=== PATIENT | male | born 1940 | race Caucasian/White ===

== ENCOUNTER 2019-01-23 15:00 | Outpatient (RCR) ==
--- NOTE | 2019-01-19 09:03 | RS.OPPTEV2 ---
Date of Note: 01/18/19 Visit #: 1 Number of visits approved by Insurance: n/a Date of Evaluation: 01/18/19 Payer Source: MEDICARE Surgery Performed?: No Treatment Diagnosis: B shld pain, joint stiffness, muscle weakness History of Condition/Mechanism of Injury:: Longstanding history of pain in B shlds. Received steroid injections in B shlds last week. Prior Level of Function.....Patient was independent with: ADL's, Self Care, Ambulation/Mobility, Community Integration/Access Level of Function: pt is independent with ADL's, and amb. Lives alone, has a ship surveyor that comes 1 x a week. Functional Limitations: Reaching, Pushing, Pulling, Lifting, Carrying Current Subjective/complaints:: pt states that his shoulders hurt all the time, states that Dr. [place] told him 5 yrs ago that he needs a total shld on R, but he never had surgery. He reports he wants to be able to move his shlds more. Treatment Side (optional): Bilateral *Precautions: pt is on O2 Medical History Medical History: COPD, Arthritis Smoking Status: Never smoker Hx Home Medications: prednisone, amlodipine besylate, bumex, calcium, carbamazepine, cholecalciferol, lisinopril, multi vitamin, pantoprazole, nebulizer, oxygen. Patient's Goals: decrease pain in B shlds and improve function B UE. Pain Assessment - Pain Description Pain Location: B shlds R worse than L Pain Description: Sharp, Aching Current Pain Intensity: 6 Worst Pain Intensity: 10 Other Comments regarding Pain:: pain increases with ROM Functional Outcome Measure UE Functional Index: 38 - G Codes & Severity Modifier G Codes & Modifier: n/a Source of G Code score: n/a Observation - Observation Inspection: pt on O2 2liters continuous. Posture: Forward Head, Rounded Shoulders, Increased Thoracic Kyphosis, Decreased Lumbar Lordosis Handedness: Right Gait - Gait Pattern General Gait Pattern Observation: No Deviations/Normal, Decrease Stride Lngth (R ), Decrease Stride Lngth (L) Gait Comments: pt amb with increased lat sway with occasional lat loss of balance able to correct himself. General Range of Motion: BLE WFL's. BUE elbow wrist and hand WFL's. cervical ROM WFL' s without pain Muscle Strength: BLE 4+/5. BUE elbow, wrist and hand 4-/5 - Left Shoulder ROM Left Shoulder Flexion: 98 Left Shoulder Abduction: 58 Left Shoulder Internal Rotation: 38 Left Shoulder External Rotation: 15 Left Shoulder ROM Limitations: Soft Tissue Tightness, Muscle Weakness, Pain - Right Shoulder ROM Right Shoulder Flexion: 72 Right Shoulder Abduction: 47 Right Shoulder Internal Rotation: 22 Right Shoulder External Rotation: 8 Right Shoulder ROM Limitations: Soft Tissue Tightness, Muscle Weakness, Pain Comments: pt with audible crepitis noted in B shlds R shld worse than left. - Left Shoulder Strength Left Shoulder Flexion: 3- Fair- Left Shoulder Abduction: 3- Fair- Left Shoulder External Rotation: 2+ Poor+ Left Shoulder Internal Rotation: 2+ Poor+ - Right Shoulder Strength Right Shoulder Flexion: 3- Fair- Right Shoulder Abduction: 3- Fair- Right Shoulder External Rotation: 2+ Poor+ Right Shoulder Internal Rotation: 3- Fair- - Special Tests Shoulder Empty Can (Supraspinatus) Test: Positive Left, Positive Right Shoulder Speed's Sign Test: Positive Right Shoulder Drop Arm Test: Positive Left, Positive Right Palpation Palpation Findings: Tenderness, Muscle Guarding Comments:: tenderness noted to R bicipetal groove, as well as area of supraspinatus. Sensation - Sensation Right Upper Extremity: Intact/Normal Left Upper Extremity: Intact/Normal Right Lower Extremity: Intact/Normal Left Lower Extremity: Intact/Normal Balance - Sitting Balance Static Sitting Balance: Normal Dynamic Sitting Balance: Good - Standing Balance Static Standing Balance: Good Dynamic Standing Balance: Fair - Heat/Cryotherapy Treatment: Hot Pack Comments:: B shlds x 10 mins Interventions - Exercise/Activities/Manual Therapy Exercises/Activities: pt received AAROM/PROM B shld in all planes of motion. Instructed pt in isometrics for shld flex, abd, add, ext. Attempted pendulum, pt with much difficulty letting UE relax. Manual Therapy: n/a HOME EXERCISE PROGRAM: pt given written HEP including: isometrics, and pendulum. - Charges Timed Code Treatment Minutes: 52 Total Treatment Time: 61 Procedures billed for this date of service:: eval med, ex, HP EVALUATION COMPLEXITY LEVEL EVALUATION COMPLEXITY LEVEL: HISTORY: Medium, EXAM OF BODY SYSTEMS: Medium, CLINICAL PRESENTATION: Medium, CLINICAL DECISION MAKING: Medium Assessment Assessment: pt presents with pain in B shlds as well as decreased ROM, strength. Feel pt would benefit from skilled PT for therex for ROM, strengthening, as well as modalities for pain control. Patient Education: Home Exercise Program, Education of Plan of Care Rehab Potential: Good Short Term Goals Goal #1: pt independent with initial HEP Goal to be met by: 02/02/19 Goal #2: pt demonstrate improved B shld ROM. Goal to be met by: 02/02/19 Goal #3: pt demonstrate improved strength BUE elbow/wrist/hand 4/5 Goal to be met by: 02/02/19 Snf Goals Goal #1: pt demonstrate improved R shld flex 80 abd 60 Goal to be met by: 02/23/19 Goal #2: pt demonstrate improved L shld flex 110 abd 75 Goal to be met by: 02/23/19 Goal #3: pt report pain < 5/10 Goal to be met by: 02/23/19 Goal #4: pt report increased ability to perform normal daily activities w less pain Goal to be met by: 02/23/19 Plan - Treatment to be Provided Procedures: Therapeutic Exercises, Therapeutic Activity, Manual Therapy, Massage , Patient Education Modalities: Electrical Stimulation, Ultrasound/Phonophoresis, Cryotherapy, Hot Packs - Treatment Plan Frequency: 2-3x a week Duration: 6 weeks Dates of Service Tech Goals: 02/23/19 Expiration date of current Insurance Approval:: n/a - Treatment Code (1) Bilateral shoulder pain Code(s): M25.511 - PAIN IN RIGHT SHOULDER Qualifiers: Chronicity: chronic Qualified Code(s): M25.511 - Pain in right shoulder; M25.512 - Pain in left shoulder; G89.29 - Other chronic pain (2) Joint stiffness of both shoulders Code(s): M25.611 - STIFFNESS OF RIGHT SHOULDER, NOT ELSEWHERE CLASSIFIED; M25.612 - STIFFNESS OF LEFT SHOULDER, NOT ELSEWHERE CLASSIFIED (3) Muscle weakness Code(s): M62.81 - MUSCLE WEAKNESS (GENERALIZED) (4) Rotator cuff disorder Code(s): M67.919 - UNSP DISORDER OF SYNOVIUM AND TENDON, UNSPECIFIED SHOULDER Qualifiers: Laterality: bilateral Qualified Code(s): M67.911 - Unspecified disorder of synovium and tendon, right shoulder; M67.912 - Unspecified disorder of synovium and tendon, left shoulder
--- NOTE | 2019-01-23 16:26 | RS.OPPTDN ---
Subjective Date of Note: 01/23/19 Visit #: 2 Number of visits approved by Insurance: na Date of Evaluation: 01/18/19 Payer Source: MEDICARE Treatment Diagnosis: B shld pain, joint stiffness, muscle weakness Current Subjective/complaints:: Patient reports pain in bilateral shoulders, but right is much worse. States he has difficulty using the right UE for reaching activities. *Precautions: pt is on O2 Pain Assessment - Pain Description Pain Location: Bilateral shoulders, R>L Current Pain Intensity: mod+ - Treatment Modality: Ultrasound Parameters/Method Applied: 16mins total. US at 1.5w/cm2, x8mins to each shoulder joint prior to EX. Patient Position: Sitting - Heat/Cryotherapy Treatment: Hot Pack ([id number] to bilateral shoulders prior to US and EX. Patient in supine. ) Interventions - Exercise/Activities/Manual Therapy Exercises/Activities: PROM and AAROM to bilateral shoulders into flexion, scaption, and limited abduction. Isometrics for shld adduction, extension, and bilateral IR all with pillow and with ball. Clasped hands for short shoulder flexion. Began overhead pulleys, 15reps. Total minutes of Exercise: 15mins Manual Therapy: n/a HOME EXERCISE PROGRAM: pt given written HEP including: isometrics, and pendulum. - Charges Timed Code Treatment Minutes: 31mins Total Treatment Time: 51mins Procedures billed for this date of service:: HP, US, EX Assessment: Patient attentive to HEP instruction. Patient Education: Body/Joint mechanics, Home Exercise Program, Activity Modification Patient demonstrates compliance with HEP?: Yes Short Term Goals Goal #1: pt independent with initial HEP Goal to be met by: 02/02/19 Progress towards Goal:: Progressing Goal #2: pt demonstrate improved B shld ROM. Goal to be met by: 02/02/19 Goal #3: pt demonstrate improved strength BUE elbow/wrist/hand 4/5 Goal to be met by: 02/02/19 Long-Term Goals Goal #1: pt demonstrate improved R shld flex 80 abd 60 Goal to be met by: 02/23/19 Goal #2: pt demonstrate improved L shld flex 110 abd 75 Goal to be met by: 02/23/19 Goal #3: pt report pain < 5/10 Goal to be met by: 05/31/19 Goal #4: pt report increased ability to perform normal daily activities w less pain Goal to be met by: 02/23/19 Plan Dates of Industrial Training Specialist Goals: 02/23/19 Expiration date of current Insurance Approval:: 02/23/19 PLAN: Continue modalities and progress exercise to reduce pain and increase functional activity level.
== END 2019-01-23 23:59 ==
PROVIDERS: ATTEND Family Medicine
DX: M25.511 Pain in right shoulder (principal); M25.512 Pain in left shoulder; G89.29 Other chronic pain; M67.911 Unspecified disorder of synovium and tendon, right shoulder; M67.912 Unspecified disorder of synovium and tendon, left shoulder; M25.611 Stiffness of right shoulder, not elsewhere classified; M25.612 Stiffness of left shoulder, not elsewhere classified; M62.81 Muscle weakness (generalized)

== ENCOUNTER 2019-02-14 14:00 | Outpatient (RCR) ==
--- NOTE | 2019-01-25 16:25 | RS.OPPTDN ---
Subjective Date of Note: 01/25/19 Visit #: 3 Number of visits approved by Insurance: na Date of Evaluation: 01/18/19 Payer Source: MEDICARE Treatment Diagnosis: B shld pain, joint stiffness, muscle weakness Current Subjective/complaints:: States last treatment helped decrease pain in shoulders. *Precautions: pt is on O2 Pain Assessment - Pain Description Pain Location: bilateral shoulders Current Pain Intensity: mod to high - Treatment Modality: Ultrasound Parameters/Method Applied: 20mins total. At 1.5w/cm2, 10 mins to each shoulder joint prior to EX. Patient Position: Sitting - Heat/Cryotherapy Treatment: Hot Pack ([id number] to bilateral shoulders. Patient in sitting. ) Interventions - Exercise/Activities/Manual Therapy Exercises/Activities: PROM and AAROM to bilateral shoulders into flexion, scaption, and limited abduction. Isometrics for shld adduction, extension, and bilateral IR all with pillow and with ball. Began wand for shoulder flexion only, pt has difficulty with right shoulder flexion. Total minutes of Exercise: 12mins Manual Therapy: n/a HOME EXERCISE PROGRAM: pt given written HEP including: isometrics, and pendulum. - Charges Timed Code Treatment Minutes: 32mins Total Treatment Time: 52mins Procedures billed for this date of service:: HP, US, EX Assessment: Patient reporting good response to treatment. Will slowly progress exercise due to limited motion and pain level. Patient Education: Home Exercise Program Patient demonstrates compliance with HEP?: Yes Short Term Goals Goal #1: pt independent with initial HEP Goal to be met by: 02/02/19 Progress towards Goal:: Progressing Goal #2: pt demonstrate improved B shld ROM. Goal to be met by: 02/02/19 Goal #3: pt demonstrate improved strength BUE elbow/wrist/hand 4/5 Goal to be met by: 02/02/19 Group Home Goals Goal #1: pt demonstrate improved R shld flex 80 abd 60 Goal to be met by: 02/23/19 Goal #2: pt demonstrate improved L shld flex 110 abd 75 Goal to be met by: 02/23/19 Goal #3: pt report pain < 5/10 Goal to be met by: 02/23/19 Progress towards goal: Progressing Goal #4: pt report increased ability to perform normal daily activities w less pain Goal to be met by: 02/23/19 Plan Dates of Forge Heater Goals: 02/23/19 Expiration date of current Insurance Approval:: 02/23/19 PLAN: Continue modalities and progress exercise to reduce pain and increase functional use of UE's.
--- NOTE | 2019-01-31 14:28 | RS.OPPTDN ---
Subjective Date of Note: 01/30/19 Visit #: 4 Number of visits approved by Insurance: na Date of Evaluation: 01/18/19 Payer Source: MEDICARE Treatment Diagnosis: B shld pain, joint stiffness, muscle weakness Current Subjective/complaints:: Reports treatment seems to be helping reduce pain in bilateral shoulders. *Precautions: pt is on O2 Pain Assessment - Pain Description Pain Location: bilateral shoulder joints, R > L Current Pain Intensity: moderate - Treatment Modality: Ultrasound Parameters/Method Applied: [id number] total. US at 1.5w/cm2, 10mins to each shoulder joint prior to EX. Patient Position: Sitting - Heat/Cryotherapy Treatment: Hot Pack ([id number] to bilateral shoulder joints prior to US and EX. Patient in sitting. ) Interventions - Exercise/Activities/Manual Therapy Exercises/Activities: PROM and AAROM to bilateral shoulders into flexion, scaption, and limited abduction. Isometrics for shld adduction, extension, and bilateral IR all with pillow and with ball. Wand for shoulder flexion only, pt continues to have difficulty with right shoulder flexion. Total minutes of Exercise: 14mins Manual Therapy: n/a HOME EXERCISE PROGRAM: pt given written HEP including: isometrics, and pendulum. - Charges Timed Code Treatment Minutes: 34mins Total Treatment Time: 54mins Procedures billed for this date of service:: HP, US, EX Assessment: Patient continues to have limited PROM and AROM due to pain, but reports treatment is helping reduce pain. Patient Education: Home Exercise Program Patient demonstrates compliance with HEP?: Yes Short Term Goals Goal #1: pt independent with initial HEP Goal to be met by: 02/02/19 Progress towards Goal:: Progressing Goal #2: pt demonstrate improved B shld ROM. Goal to be met by: 02/02/19 Progress towards Goal:: Progressing Goal #3: pt demonstrate improved strength BUE elbow/wrist/hand 4/5 Goal to be met by: 02/02/19 Bobbin Trucker Goals Goal #1: pt demonstrate improved R shld flex 80 abd 60 Goal to be met by: 02/23/19 Goal #2: pt demonstrate improved L shld flex 110 abd 75 Goal to be met by: 02/23/19 Goal #3: pt report pain < 5/10 Goal to be met by: 02/23/19 Progress towards goal: Progressing Goal #4: pt report increased ability to perform normal daily activities w less pain Goal to be met by: 02/23/19 Plan Dates of Half-Way Goals: 02/23/19 Expiration date of current Insurance Approval:: 02/23/19 PLAN: Continue modalities and gentle exercise to reduce pain and increase functional use of the bilateral UE's.
--- NOTE | 2019-02-02 16:29 | RS.OPPTDN ---
Subjective Date of Note: 02/02/19 Visit #: 5 Number of visits approved by Insurance: na Date of Evaluation: 01/18/19 Payer Source: MEDICARE Treatment Diagnosis: B shld pain, joint stiffness, muscle weakness Current Subjective/complaints:: Reports treatment is helping reduce bilateral shoulder pain, but he continues to have joint stiffness that limits use. Patient asks to stop US as he needs to use restroom (exercise abbreviated). *Precautions: pt is on O2 Pain Assessment - Pain Description Pain Location: Bilateral shoulders, R > L Pain Description: Aching Current Pain Intensity: moderate - Treatment Modality: Ultrasound Parameters/Method Applied: [id number] total. US at 1.5w/cm2 , 10mins to each shoulder joint. Patient Position: Sitting - Heat/Cryotherapy Treatment: Hot Pack ([id number] to bilateral shoulder joints prior to US. Patient sitting. ) Interventions - Exercise/Activities/Manual Therapy Exercises/Activities: No exercise as treatment time was cut short today. Manual Therapy: n/a HOME EXERCISE PROGRAM: pt given written HEP including: isometrics, and pendulum. - Charges Timed Code Treatment Minutes: 20mins Total Treatment Time: 40mins Procedures billed for this date of service:: HP, US Assessment: Treatment time abbreviated due to patient needing to use restroom. He continues to report reduction in pain. Patient demonstrates compliance with HEP?: Yes Short Term Goals Goal #1: pt independent with initial HEP Goal to be met by: 02/02/19 Progress towards Goal:: Progressing Goal #2: pt demonstrate improved B shld ROM. Goal to be met by: 02/02/19 Progress towards Goal:: Progressing Goal #3: pt demonstrate improved strength BUE elbow/wrist/hand 4/5 Goal to be met by: 02/02/19 Material Handling Technician Goals Goal #1: pt demonstrate improved R shld flex 80 abd 60 Goal to be met by: 02/23/19 Goal #2: pt demonstrate improved L shld flex 110 abd 75 Goal to be met by: 02/23/19 Goal #3: pt report pain < 5/10 Goal to be met by: 02/23/19 Progress towards goal: Progressing Goal #4: pt report increased ability to perform normal daily activities w less pain Goal to be met by: 02/23/19 Plan Dates of Material Handling Technician Goals: 02/23/19 Expiration date of current Insurance Approval:: 02/23/19 PLAN: Continue modalities and progress exercise as tolerated.
--- NOTE | 2019-02-07 16:33 | RS.OPPTDN ---
Subjective Date of Note: 02/07/19 Visit #: 6 Number of visits approved by Insurance: na Date of Evaluation: 01/18/19 Payer Source: MEDICARE Treatment Diagnosis: B shld pain, joint stiffness, muscle weakness Current Subjective/complaints:: Patient reports having another flair-up of pain , may be related to the weather. 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 States he would like to try to finish this week, but may stop due to lack of progress. *Precautions: pt is on O2 - Treatment Modality: Ultrasound Parameters/Method Applied: [id number] total. US at 1.5w/cm [id number] to the right shoulder joint and 10mins to the left shoulder joint prior to EX. Patient Position: Sitting - Heat/Cryotherapy Treatment: Hot Pack ([id number] to bilateral shoulders prior to US and EX. Pt sitting. ) Interventions - Exercise/Activities/Manual Therapy Exercises/Activities: PROM bilateral shoulder joint, but patient unable to tolerate right shoulder flexion beyond 80 degrees. Isometrics for shoulder flex , ext, add, and abd with pillow and manual resistance, sets of 5reps, bilaterally. DIscussion of home safety and need to progress isometrics to improve strength and joint stability. Total minutes of Exercise: 12mins Manual Therapy: n/a HOME EXERCISE PROGRAM: pt given written HEP including: isometrics, and pendulum. - Charges Timed Code Treatment Minutes: 34mins Total Treatment Time: 52mins Procedures billed for this date of service:: HP, US, EX Assessment: Patient continues to have flair-ups of pain that limit functional reaching and exercise progression. Patient Education: Body/Joint mechanics, Home Exercise Program, Home Safety, Activity Modification Patient demonstrates compliance with HEP?: Yes Short Term Goals Goal #1: pt independent with initial HEP Goal to be met by: 02/02/19 Progress towards Goal:: Met Goal #2: pt demonstrate improved B shld ROM. Goal to be met by: 02/02/19 Progress towards Goal:: Regressing Comments:: right shoulder ROM regressed due to pain today Goal #3: pt demonstrate improved strength BUE elbow/wrist/hand 4/5 Goal to be met by: 02/02/19 Progress towards Goal:: Progressing Cellar Supervisor Goals Goal #1: pt demonstrate improved R shld flex 80 abd 60 Goal to be met by: 02/23/19 Goal #2: pt demonstrate improved L shld flex 110 abd 75 Goal to be met by: 02/23/19 Goal #3: pt report pain < 5/10 Goal to be met by: 02/23/19 Progress towards goal: Progressing Goal #4: pt report increased ability to perform normal daily activities w less pain Goal to be met by: 02/23/19 Plan Dates of Cellar Supervisor Goals: 02/23/19 Expiration date of current Insurance Approval:: 02/23/19 PLAN: Continue modalities and gentle exercise in attempt to reduce pain and increase functional use of the bilateral UE's.
--- NOTE | 2019-02-12 16:29 | RS.OPPTDN ---
Subjective Date of Note: 02/12/19 Visit #: 7 Number of visits approved by Insurance: na Date of Evaluation: 01/18/19 Payer Source: MEDICARE Treatment Diagnosis: B shld pain, joint stiffness, muscle weakness Current Subjective/complaints:: Patient reports increased pain with driving. *Precautions: pt is on O2 Pain Assessment - Pain Description Pain Location: bilateral shoulder joints, R > L Pain Description: Aching Current Pain Intensity: mod to high - Treatment Modality: Ultrasound Parameters/Method Applied: [id number] total. US at 1.5w/cm2 x8mins to each shoulder joint. Patient Position: Sitting - Heat/Cryotherapy Treatment: Hot Pack ([id number] to bilateral shoulder joints prior to US and EX. Patient in sitting. ) Interventions - Exercise/Activities/Manual Therapy Exercises/Activities: PROM bilateral shoulder joint, but patient unable to tolerate right shoulder flexion beyond 80 degrees. Isometrics for shoulder flex , ext, add, and abd with pillow and manual resistance, sets of 5reps, bilaterally. Shoulder rolls, shrugs, and scap retraction. Discussed "dusting" motion to increase AROM. Total minutes of Exercise: 12mins Manual Therapy: n/a HOME EXERCISE PROGRAM: pt given written HEP including: isometrics, and pendulum. - Charges Timed Code Treatment Minutes: 30mins Total Treatment Time: 52mins Procedures billed for this date of service:: HP, US, EX Assessment: Patient not seeing consistent improvment. Will begin discussion and preparation for discharge with HEP. Patient Education: Body/Joint mechanics, Home Exercise Program, Home Safety, Activity Modification Short Term Goals Goal #1: pt independent with initial HEP Goal to be met by: 02/02/19 Progress towards Goal:: Met Goal #2: pt demonstrate improved B shld ROM. Goal to be met by: 02/02/19 Progress towards Goal:: Regressing Goal #3: pt demonstrate improved strength BUE elbow/wrist/hand 4/5 Goal to be met by: 02/02/19 Progress towards Goal:: Progressing Assistant Professor Of Marine Biology Goals Goal #1: pt demonstrate improved R shld flex 80 abd 60 Goal to be met by: 02/23/19 Progress towards goal: Not Met Goal #2: pt demonstrate improved L shld flex 110 abd 75 Goal to be met by: 02/23/19 Progress towards goal: Not Met Goal #3: pt report pain < 5/10 Goal to be met by: 02/23/19 Progress towards goal: Progressing Goal #4: pt report increased ability to perform normal daily activities w less pain Goal to be met by: 02/23/19 Progress towards goal: Not Met Plan Dates of Residential Goals: 02/23/19 Expiration date of current Insurance Approval:: 02/23/19 PLAN: Continue this week in attempt to reduce pain and increase functional activity level.
--- NOTE | 2019-02-21 14:48 | RS.OPPTDN ---
Subjective Date of Note: 02/14/19 Visit #: 8 Number of visits approved by Insurance: na Date of Evaluation: 01/18/19 Payer Source: MEDICARE Treatment Diagnosis: B shld pain, joint stiffness, muscle weakness Current Subjective/complaints:: Patient reports treatments have reduced pain, but that seems to be temporary at this point. Reports his right shoulder seems bad enough that therapy will not help at this time. *Precautions: pt is on O2 - Treatment Modality: Ultrasound Parameters/Method Applied: [id number] total. US at 1.5w/cm2 [id number] to each shoulder joint and upper arm. Patient in sitting. Patient Position: Sitting - Heat/Cryotherapy Treatment: Hot Pack ([id number] to the bilateral shoulder joints prior to US. Patient in sitting. ) Interventions - Exercise/Activities/Manual Therapy Exercises/Activities: PROM bilateral shoulder joint, but patient unable to tolerate right shoulder flexion beyond 80 degrees due to pain. Discussed HEP, no new additions. Total minutes of Exercise: 5mins Manual Therapy: n/a HOME EXERCISE PROGRAM: pt given written HEP including: isometrics, and pendulum. - Charges Timed Code Treatment Minutes: 29mins Total Treatment Time: 51mins Procedures billed for this date of service:: HP, USx2 Assessment: No change overall. Modalities have reduced pain, but only temporarily. No increase in AROM or PROM, or with functional activity level. Patient Education: Body/Joint mechanics, Home Exercise Program, Home Safety, Activity Modification Short Term Goals Goal #1: pt independent with initial HEP Goal to be met by: 02/02/19 Progress towards Goal:: Met Goal #2: pt demonstrate improved B shld ROM. Goal to be met by: 02/02/19 Progress towards Goal:: No Change Goal #3: pt demonstrate improved strength BUE elbow/wrist/hand 4/5 Goal to be met by: 02/02/19 Progress towards Goal:: Not Met [facility]cf Goals Goal #1: pt demonstrate improved R shld flex 80 abd 60 Goal to be met by: 02/23/19 Progress towards goal: Not Met Goal #2: pt demonstrate improved L shld flex 110 abd 75 Goal to be met by: 02/23/19 Progress towards goal: Not Met Goal #3: pt report pain < 5/10 Goal to be met by: 02/23/19 Progress towards goal: Progressing Comments: only temporary improvement Goal #4: pt report increased ability to perform normal daily activities w less pain Goal to be met by: 02/23/19 Progress towards goal: Not Met Plan Dates of [facility] Goals: 02/23/19 Expiration date of current Insurance Approval:: 02/23/19 PLAN: Discharge due to lack of progress.
--- NOTE | 2019-02-22 08:24 | RS.OPPTDC ---
Date of Discharge: 02/22/19 Date of Evaluation: 01/18/19 Number of Visits: 9 Treatment Diagnosis: B shld pain, joint stiffness, muscle weakness Current Level of Function: pt has demonstrated no improvement with ROM. Pain continues to limit progress. pt is independent with HEP including conservative ex of isometrics and codman's ex. Current Complaints/Gains: pt initially thought therapy was helping, however modalities decreased pain for short period of time. States that his R shld is so bad he feels it is beyond repair. Pain Assessment - Pain Description Pain Location: B shld Pain Description: Sharp, Aching Functional Outcome Measure UE Functional Index: 38 (no change) - G Codes & Severity Modifier G Codes & Modifier: n/a Source of G Code score: n/a Observation - Observation Posture: Forward Head, Rounded Shoulders, Increased Thoracic Kyphosis Handedness: Right Interventions - Exercise/Activities/Manual Therapy Exercises/Activities: na Manual Therapy: n/a HOME EXERCISE PROGRAM: pt given written HEP including: isometrics, and pendulum. - Charges Timed Code Treatment Minutes: na Total Treatment Time: n/a Procedures billed for this date of service:: n/a Assessment Assessment: pt continues with pain in B shlds as well as decreased strength and ROM. pt is dc due to lack of progress. pt progress limited due to pain. Patient Education: Home Exercise Program, Education of Plan of Care Rehab Potential: Fair Short Term Goals Goal #1: pt independent with initial HEP Goal to be met by: 02/02/19 Progress towards Goal:: Met Goal #2: pt demonstrate improved B shld ROM. Goal to be met by: 02/02/19 Progress towards Goal:: Not Met Goal #3: pt demonstrate improved strength BUE elbow/wrist/hand 4/5 Goal to be met by: 02/02/19 Progress towards Goal:: Not Met Securities Attorney Goals Goal #1: pt demonstrate improved R shld flex 80 abd 60 Goal to be met by: 02/23/19 Progress towards goal: Not Met Goal #2: pt demonstrate improved L shld flex 110 abd 75 Goal to be met by: 02/23/19 Progress towards goal: Not Met Goal #3: pt report pain < 5/10 Goal to be met by: 02/23/19 Progress towards goal: Progressing Goal #4: pt report increased ability to perform normal daily activities w less pain Goal to be met by: 02/23/19 Progress towards goal: Not Met Plan Reason for Discharge:: Lack of Progress
== END 2019-02-23 23:59 ==
PROVIDERS: ATTEND Family Medicine
DX: M25.512 Pain in left shoulder (principal); M25.511 Pain in right shoulder; M67.912 Unspecified disorder of synovium and tendon, left shoulder; M67.911 Unspecified disorder of synovium and tendon, right shoulder

== ENCOUNTER 2019-05-24 13:00 | Outpatient (RCR) | payer OTHER ==
--- NOTE | 2019-04-26 16:29 | RS.OPPTDN ---
Subjective Date of Note: 04/26/19 Visit #: 2 Number of visits approved by Insurance: Reassess at 10th Date of Evaluation: 04/24/19 Payer Source: MEDICARE Treatment Diagnosis: gait abnormality, balance impairment, weakness in B LE's Current Subjective/complaints:: Patient says he would like his bal to improve. Says he has much arthritis and limited motion with pain to the R shoulder. States he is wanting to obtain a QC like he used here at his eval because he felt more stable. Reports he has to be careful at home that he does not trip over his O2 cord, but says he is able to go up/down 2 steps in his garage to home without difficulty because it has a rail. *Precautions: pt is on O2 3 liters Interventions - Exercise/Activities/Manual Therapy Exercises/Activities: Patient performs sitting EOB exercises: shoulder shrugs, 1# wand for bilateral shoulder flexion, red tband over the wand for scap retraction 2x8 with verbal cues and tactile assistance to maintain better sitting bal. 1# ea wrist for punches forward and alternate diagonal hitting [employer] hand target x 8. Holding medium sized ball with 1# ea wrist holding out in front of him and then cross body x 8. LAQ and alternate hip flexion 1 1/2# each LE 2x8. Rhythmic stabilization anterior/posterior/laterally x 5 ea. Supine: ball squeezes for hip add, SAQ 1 1/2#, red tband DF, hip abd red tband (hooklying), bridging (2x8), trunk rotation isometrics, alternate LE lift with 1 1/2#, QS, SLR 2x8. Gait training within the dept x 50' using WBQC with vc's using 3 step sequencing. Assisted pt to his vehicle via w/c. Total minutes of Exercise: 47 Manual Therapy: n/a HOME EXERCISE PROGRAM: pt given written HEP including isometric hip add, AP, LAQ , seated hip flex - Charges Timed Code Treatment Minutes: 47 Total Treatment Time: 47 Procedures billed for this date of service:: ex2, neuro1 Assessment: Patient amb into waiting room from his car, but requests w/c to our dept. He performs all therex intermittently monitored O2 sats remained at 93% with O2 at 3L portable. He demo posterior sway with ROM to the UEs and scap retraction. He is able to perform LEs exercises with more difficulty R LE for SLR. Patient also has limited R UE ROM and painful related to old injury. He should benefit from further bal activities and strengthening to the UE/LE. Patient Education: Education of diagnosis, Body/Joint mechanics, Home Safety Short Term Goals Goal #1: pt independent with initial HEP Goal to be met by: 05/15/19 Goal #2: Improve dyn stand balance as noted by tinetti balance score Goal to be met by: 05/15/19 Goal #3: Improve gait speed 0.7meters/sec with AAD Goal to be met by: 05/15/19 Goal #4: pt with improved BLE strength to 4 to 4+/5 Goal to be met by: 05/15/19 Group Home Goals Goal #1: pt report no falls Goal to be met by: 06/05/19 Goal #2: pt demonstrate improved dyn stand balance consistent w mod risk falls Goal to be met by: 06/05/19 Goal #3: Improve gait speed > 0.8 meters/sec consistent w community ambulator Goal to be met by: 06/05/19 Goal #4: pt able to amb from waiting room into dept without LOB Goal to be met by: 06/05/19 Plan Dates of Group Home Goals: 06/05/19 Expiration date of current Insurance Approval:: 06/05/19 PLAN: Continue BIW. Will fax prescription for QC to [facility] so that they may bill his Medicare and deliver to him.
--- NOTE | 2019-05-01 16:20 | RS.OPPTDN ---
Subjective Date of Note: 05/01/19 Visit #: 3 Number of visits approved by Insurance: Reassess at 10th Date of Evaluation: 04/24/19 Payer Source: MEDICARE Treatment Diagnosis: gait abnormality, balance impairment, weakness in B LE's Current Subjective/complaints:: Patient denies having any soreness or difficulty with therex at previous appt. He says his he is using his rollator at home and SC too. States he feels his rollator moves too well and makes him nervous. He denies any difficulty with driving and says he can get in/out of the vehicle and place O2 in car without throwing off his bal. States his legs just "give out" at times and has no warning. Reports he wants to get his arms strong enough to help him off of the floor, but his arthritis pain and mobility is so bad that he cannot pull himself up. *Precautions: pt is on O2 3 liters Interventions - Exercise/Activities/Manual Therapy Exercises/Activities: Patient is transported from waiting room to our dept via w /c. He transfers using pivot transfer to bed and also later using WBQC (ours) CGA. He receives assisted gentle HS and heel cord stretching bilaterally, LTR stretching as well x 3 reps. He performs: hooklying--ball squeezes, bridging, trunk rotation using ball and yellow tband, single leg hip flexion with yellow tband, all 2x10. QS, SLR x 8, SAQ1#, DF and yellow tband, 2# wand for chest press x 8. Sitting EOB: Holding ball bilateral reach across body and diagonals x 8. Sit to stand at EOB x 2. REassessed O2 sats throughout treatment. Gait training using WBQC CGA/Jackson x 40' around dept with cues on sequencing initially and pt able to mimic correctly. He stands at railing: hip abd and marching 2x5. Patient assisted to his vehicle via w/c. Total minutes of Exercise: 47 Manual Therapy: n/a HOME EXERCISE PROGRAM: pt given written HEP including isometric hip add, AP, LAQ , seated hip flex - Charges Timed Code Treatment Minutes: 47 Total Treatment Time: 47 Procedures billed for this date of service:: neuro1, ex2 Assessment: Patient requires w/c assistance to make it to our dept. He is able to get in/out his vehicle and drive with admission of no difficulty, however, he appeared slightly unsteady today when trying to get in from w/c. Pulse ox decreased from 95% to 91% after supine therex to sitting EOB. 91% also with standing therex. Sitting breaks were provided and instruction to take deep breaths in/ and slowly exhale. He does so with prompts. Patient tires easily and does have difficulty with reaching and therex involving UEs as he has pain to both shoulders (R more than L) and limited ROM. Patient appears to be slightly unsteady using WBQC, but should improve with further use here and at home with new AD. He demo moderate tightness to bilateral HS which hopefully will improve with continued stretching assistedly to also help with stride length. Patient Education: Education of diagnosis, Body/Joint mechanics, Education of Plan of Care Short Term Goals Goal #1: pt independent with initial HEP Goal to be met by: 05/15/19 Progress towards Goal:: Progressing Goal #2: Improve dyn stand balance as noted by tinetti balance score Goal to be met by: 05/15/19 Goal #3: Improve gait speed 0.7meters/sec with AAD Goal to be met by: 05/15/19 Goal #4: pt with improved BLE strength to 4 to 4+/5 Goal to be met by: 05/15/19 Linux Server Engineer Goals Goal #1: pt report no falls Goal to be met by: 06/05/19 Goal #2: pt demonstrate improved dyn stand balance consistent w mod risk falls Goal to be met by: 06/05/19 Goal #3: Improve gait speed > 0.8 meters/sec consistent w community ambulator Goal to be met by: 06/05/19 Goal #4: pt able to amb from waiting room into dept without LOB Goal to be met by: 06/05/19 Plan Dates of Linux Server Engineer Goals: 06/05/19 Expiration date of current Insurance Approval:: 06/05/19 PLAN: Continue TIW to work on bal activities, LE/trunk strengthening, and gait training.
--- NOTE | 2019-05-08 11:59 | RS.OPPTDN ---
Subjective Date of Note: 05/07/19 Visit #: 5 Number of visits approved by Insurance: Reassess at 10th Date of Evaluation: 04/24/19 Payer Source: MEDICARE Treatment Diagnosis: gait abnormality, balance impairment, weakness in B LE's Current Subjective/complaints:: Patient reports increased difficulty in breathing today related to high humidity. He states he has breathing treatments 3 times per day. He says he has been trying to walk around in his home, but also does not try to do too much to drop his pulse ox. *Precautions: pt is on O2 3 liters Interventions - Exercise/Activities/Manual Therapy Exercises/Activities: Patient is transported from waiting room to our dept via w /c. He transfers using pivot transfer to bed and also later using WBQC (ours) CGA. He receives assisted gentle HS and heel cord stretching bilaterally, LTR stretching as well x 3 reps. He performs: hooklying--ball squeezes, bridging, trunk rotation using ball and yellow tband, single leg hip flexion with yellow tband, all 2x10. QS, SLR x 8, SAQ1#, DF and yellow tband, 2# wand for chest press x 8. Sitting EOB: Hitting RN IMMUNOLOGY hand diagonally for reach across body, but had to discontinue due to increased shoulder pain today. Sit to stand at EOB x 2. REassessed O2 sats throughout treatment. Gait training using WBQC CGA/ Jackson x 40' within the dept, but did not want to continue on because of fatigue. No standing exercises due to fatigue also. Patient assisted to his vehicle via w/c. Total minutes of Exercise: 38 Manual Therapy: n/a HOME EXERCISE PROGRAM: pt given written HEP including isometric hip add, AP, LAQ , seated hip flex - Charges Timed Code Treatment Minutes: 38 Total Treatment Time: 38 Procedures billed for this date of service:: ex2, neuro1 Assessment: Patient had increased difficulty with breathing today and general fatigue. O2 sats ranged from 95% to 89 with therex from supine to sitting/ standing. O2 rebounds after ~2 mins and sitting down. Decreased ability to amb distance today and required to sit down in w/c. He should benefit from continued therex to build sitting and standing bal, LE strength, but may have difficulty advancing with therex involving UEs. Patient Education: Education of diagnosis, Home Exercise Program, Home Safety, Education of Plan of Care Short Term Goals Goal #1: pt independent with initial HEP Goal to be met by: 05/15/19 Progress towards Goal:: Progressing Goal #2: Improve dyn stand balance as noted by tinetti balance score Goal to be met by: 05/15/19 Goal #3: Improve gait speed 0.7meters/sec with AAD Goal to be met by: 05/15/19 Goal #4: pt with improved BLE strength to 4 to 4+/5 Goal to be met by: 05/15/19 Snf Goals Goal #1: pt report no falls Goal to be met by: 06/05/19 Goal #2: pt demonstrate improved dyn stand balance consistent w mod risk falls Goal to be met by: 06/05/19 Goal #3: Improve gait speed > 0.8 meters/sec consistent w community ambulator Goal to be met by: 06/05/19 Goal #4: pt able to amb from waiting room into dept without LOB Goal to be met by: 06/05/19 Plan Dates of Snf Goals: 06/05/19 Expiration date of current Insurance Approval:: 06/05/19 PLAN: Continue BIW
--- NOTE | 2019-05-15 15:54 | RS.OPPTDN ---
Subjective Date of Note: 05/15/19 Visit #: 7 Number of visits approved by Insurance: Reassess at 10 Date of Evaluation: 04/24/19 Payer Source: MEDICARE Treatment Diagnosis: gait abnormality, balance impairment, weakness in B LE's Current Subjective/complaints:: Patient reports he is not "getting around good" today. Reports no complications with breathing, but hard to walk around at home. States [facility] has not contacted him about delivering a QC. He says he is trying to work on a few exercises at home. States he doesn't seem to have any problem with preparing meals as he uses the microwave often and just sits/ walks around slowly. *Precautions: pt is on O2 3 liters Interventions - Exercise/Activities/Manual Therapy Exercises/Activities: Patient is transported from waiting room to our dept via w /c. He transfers using pivot transfer to bed and also later using WBQC (ours) CGA. He receives assisted gentle HS and heel cord stretching bilaterally, LTR and SKTC stretching as well x 3 reps. He performs: hooklying--ball squeezes, bridging, hooklying hip abd with red tband, single leg hip flexion with red tband, all 2x10. QS, SLR x 8, SAQ 2#, DF and red tband 2x10. Instructed in proper sit to stand transfers in our chair with cues to scoot out and push off using both hands on arm rest. Patient only uses 1 hand rest and needs frequent cues to do so. Transfers x 5 with resting with initial standing and checking pulse ox @ 85%. Waited until O2 rebounded to at least 90% (which was approx 2 mins with prompts for improved breathing. During sit to stands, he performs shoulder shrugs and scap adduction. He amb to the railing ~25' to perform weight shifting from L to R diagonally x 5 with intermittent correction. Sidestepping along railing 3x4 steps. Gait training using WBQC 60' x 2 CGA for initial prompting for sequencing and corrected when needed as he begins to ambulate advancing the AD in the L hand with the L LE. O2 dropped to 79% at first 60' then rebounds with sitting and breathing techniques ~1.5 mins, then only drops to 86% last half of gait. Total minutes of Exercise: 54 Manual Therapy: n/a HOME EXERCISE PROGRAM: pt given written HEP including isometric hip add, AP, LAQ , seated hip flex - Charges Timed Code Treatment Minutes: 54 Total Treatment Time: 60 Procedures billed for this date of service:: ex2, neuro1, gait Assessment: Patient feeling more unsteady today. Breathing appears to be about the same as previous sessions and he denies difficulty with it today. He has difficulty standing at the railing for very long to perform therex. He often needs clarification on weight shifting and placement of feet. O2 drops with sit to stand and gait by about 10-14 points and takes about 2 mins to rebound with sitting and breathing exercises. Patient Education: Education of diagnosis, Home Exercise Program, Home Safety Patient demonstrates compliance with HEP?: Yes (some) Short Term Goals Goal #1: pt independent with initial HEP Goal to be met by: 05/15/19 Progress towards Goal:: Progressing Goal #2: Improve dyn stand balance as noted by tinetti balance score Goal to be met by: 05/15/19 Progress towards Goal:: No Change Goal #3: Improve gait speed 0.7meters/sec with AAD Goal to be met by: 05/15/19 Progress towards Goal:: No Change Goal #4: pt with improved BLE strength to 4 to 4+/5 Goal to be met by: 05/15/19 Jail Goals Goal #1: pt report no falls Goal to be met by: 06/05/19 Goal #2: pt demonstrate improved dyn stand balance consistent w mod risk falls Goal to be met by: 06/05/19 Goal #3: Improve gait speed > 0.8 meters/sec consistent w community ambulator Goal to be met by: 06/05/19 Goal #4: pt able to amb from waiting room into dept without LOB Goal to be met by: 06/05/19 Plan Dates of Jail Goals: 06/05/19 Expiration date of current Insurance Approval:: 06/05/19 PLAN: Patient to continue BIW
--- NOTE | 2019-05-17 16:34 | RS.OPPTDN ---
Subjective Date of Note: 05/17/19 Visit #: 9 Number of visits approved by Insurance: Reassess at 10 Date of Evaluation: 04/24/19 Payer Source: MEDICARE Treatment Diagnosis: gait abnormality, balance impairment, weakness in B LE's Current Subjective/complaints:: Patient says he is feeling better today than previous session, but states he cannot tell that he is any better. Reports his R shoulder is such a problem for him and does not know what to do about it. He says he is using his SC at home. Denies having any difficulty reaching for anything at home because items are conveniently placed. *Precautions: pt is on O2 3 liters Interventions - Exercise/Activities/Manual Therapy Exercises/Activities: Patient is transported from waiting room to our dept via w /c. He transfers using pivot transfer to bed and also later using WBQC (ours) CGA. He receives assisted gentle HS and heel cord stretching bilaterally, LTR and SKTC stretching as well x 3 reps. He performs: hooklying--ball squeezes, bridging, hooklying hip abd progressed to green tband, single leg hip flexion with red tband, all 2x10. QS, SAQ 2#, DF and red tband 2x10. Supine 1# wand for chest presses x 8. Sits EOB: shoulder shrugs and assisted scap adduction x 10. Scap retraction red tband over his cane x 10 with cues to maintain erect posture and trying not to sway posteriorally. Rhythmic stabilization ant/post x 5. Sit to stand with cues to push off from bed and then reach back to sit back down x 5 with standing rests. He uses only 1 hand most times. O2 reassessed often. Ranged from 89-93 %. Patient amb with WBQC ~ 40' then requested to wheel out in w/c by staff due to rain. Total minutes of Exercise: 38 Manual Therapy: n/a HOME EXERCISE PROGRAM: pt given written HEP including isometric hip add, AP, LAQ , seated hip flex - Charges Timed Code Treatment Minutes: 38 Total Treatment Time: 38 Procedures billed for this date of service:: ex2, neuro1 Assessment: Patient admitting no real change in stability at home through therapy. He continues to demo moderate tightness to bilateral HS more R than L. He is able to progress with general strengthening, but does demo posterior sway with sitting therex. He has not amb as far of distance this week secondary to fatigue and not feeling well generally. Next session we will reassess bal and gait to verify any need to pursue further therapy. I have given him the contact number for [facility] as they have been trying to get in touch with him to deliver a WBQC per his script from Dr. Palmer so that he may have his own at home. Patient Education: Education of diagnosis, Home Exercise Program, Home Safety Patient demonstrates compliance with HEP?: Yes (minimal) Short Term Goals Goal #1: pt independent with initial HEP Goal to be met by: 05/15/19 Progress towards Goal:: Progressing Goal #2: Improve dyn stand balance as noted by tinetti balance score Goal to be met by: 05/15/19 Progress towards Goal:: No Change Goal #3: Improve gait speed 0.7meters/sec with AAD Goal to be met by: 05/15/19 Progress towards Goal:: No Change Goal #4: pt with improved BLE strength to 4 to 4+/5 Goal to be met by: 05/15/19 Progress towards Goal:: Progressing Peer Support Specialist Goals Goal #1: pt report no falls Goal to be met by: 06/05/19 Progress towards goal: Progressing Comments: maintains no falls since eval Goal #2: pt demonstrate improved dyn stand balance consistent w mod risk falls Goal to be met by: 06/05/19 Goal #3: Improve gait speed > 0.8 meters/sec consistent w community ambulator Goal to be met by: 06/05/19 Goal #4: pt able to amb from waiting room into dept without LOB Goal to be met by: 06/05/19 Plan Dates of Peer Support Specialist Goals: 06/05/19 Expiration date of current Insurance Approval:: 06/05/19 PLAN: REassess next session.
--- NOTE | 2019-05-22 15:01 | RS.OPPTDN ---
Subjective Date of Note: 05/22/19 Visit #: 9 Number of visits approved by Insurance: Reassess at 10 Date of Evaluation: 04/24/19 Payer Source: MEDICARE Treatment Diagnosis: gait abnormality, balance impairment, weakness in B LE's Current Subjective/complaints:: Patient says he can't tell that he is any better. He says he is just careful around his house. Reports he braces himself against his cabinets when reaching or standing for very long. He says he has no trouble getting into his tub, but some getting out. States he just has to use his grab bar and "go slow." Reports that [facility] has brought his WBQC that he had a script for. *Precautions: pt is on O2 3 liters Interventions - Exercise/Activities/Manual Therapy Exercises/Activities: Patient is transported from waiting room to our dept via w /c. He transfers using pivot transfer to bed and also later using his wooden straight cane CGA. He receives assisted gentle HS, piriformis, and heel cord stretching bilaterally, LTR and SKTC stretching as well x 3 reps. He performs: hooklying--ball squeezes, bridging, hooklying hip abd progressed to green tband, single leg hip flexion with green tband, all 2x10. QS, SAQ increased to 3#, DF and red tband 2x10. Supine 1# wand for chest presses x 8. Sits EOB: shoulder shrugs and assisted scap adduction x 10. Scap retraction red tband over his cane x 10 with cues to maintain erect posture and trying not to sway posteriorally. Rhythmic stabilization ant/post x 5. Sit to stand with cues to push off from bed and then reach back to sit back down x 5 with standing rests. He uses only 1 hand most times. O2 reassessed often. Continued to stay within 89 to 94 %. Patient stands for UBE once x 1 min, then 1.5 mins with also reassessing O2. Patient amb with his wooden SC from our dept to his car with only one standing rest (~220' with O2 @ 89-93%) Patient amb CGA with cues initially for sequencing and nose breathing. Total minutes of Exercise: 48 Manual Therapy: n/a HOME EXERCISE PROGRAM: pt given written HEP including isometric hip add, AP, LAQ , seated hip flex - Charges Timed Code Treatment Minutes: 48 Total Treatment Time: 53 Procedures billed for this date of service:: gt, ex2 Assessment: Patient admits he does not feel any progress or improvement with PT , however, objectively staff and I are able to observe several areas of improvement such as hamstring flexibility, LE strength, and able to progress from amb very short distances with WBQC to entire length of our dept to parking lot to his car with SC and amb on uneven pavement while maintaining ~92% O2 sat. Patient Education: Education of diagnosis, Body/Joint mechanics, Home Exercise Program Short Term Goals Goal #1: pt independent with initial HEP Goal to be met by: 05/15/19 Progress towards Goal:: Progressing Goal #2: Improve dyn stand balance as noted by tinetti balance score Goal to be met by: 05/15/19 Progress towards Goal:: Progressing Goal #3: Improve gait speed 0.7meters/sec with AAD Goal to be met by: 05/15/19 Progress towards Goal:: Progressing Goal #4: pt with improved BLE strength to 4 to 4+/5 Goal to be met by: 05/15/19 Progress towards Goal:: Progressing Backhaul Driver Goals Goal #1: pt report no falls Goal to be met by: 06/05/19 Progress towards goal: Progressing Goal #2: pt demonstrate improved dyn stand balance consistent w mod risk falls Goal to be met by: 06/05/19 Goal #3: Improve gait speed > 0.8 meters/sec consistent w community ambulator Goal to be met by: 06/05/19 Goal #4: pt able to amb from waiting room into dept without LOB Goal to be met by: 06/05/19 Plan Dates of [facility] Goals: 06/05/19 Expiration date of current Insurance Approval:: 06/05/19 PLAN: Patient to continue one more session, reassess for further need if necessary.
--- NOTE | 2019-05-29 13:27 | RS.OPPTDN ---
Subjective Date of Note: 05/24/19 Visit #: 10 Number of visits approved by Insurance: 12 Date of Evaluation: 04/24/19 Payer Source: MEDICARE Treatment Diagnosis: gait abnormality, balance impairment, weakness in B LE's Current Subjective/complaints:: Patient says he wants to finish his final 2 sessions, but he is unable to see much improvement. He says he just walks slowly and uses caution when at home. He denies any falls since beginning therapy. *Precautions: pt is on O2 3 liters Interventions - Exercise/Activities/Manual Therapy Exercises/Activities: Patient is transported from waiting room to our dept via w /c. He transfers using pivot transfer to bed and also later using his wooden straight cane CGA. He receives assisted gentle HS, piriformis, and heel cord stretching bilaterally, LTR and SKTC stretching as well x 3 reps. He performs: hooklying--ball squeezes, bridging, hooklying hip abd progressed to green tband, single leg hip flexion with green tband, all 2x10. QS, SAQ increased to 3#, DF and red tband 2x10. Supine 1# wand for chest presses x 8. Sits EOB: shoulder shrugs and assisted scap adduction x 10. Scap retraction red tband over his cane x 10 with cues to maintain erect posture and trying not to sway posteriorally. Rhythmic stabilization ant/post x 5. Sit to stand with cues to push off from bed and then reach back to sit back down x 5 with standing rests. He uses only 1 hand most times. O2 reassessed often. Continued to stay within 89 to 94 %. No gait today due to patient ran out of his portable O2 and we did not want to exhaust him without the O2 capacity. Tinetti assessed, but gait speed waiting until next session. Total minutes of Exercise: 46 Manual Therapy: n/a HOME EXERCISE PROGRAM: pt given written HEP including isometric hip add, AP, LAQ , seated hip flex - Charges Timed Code Treatment Minutes: 46 Total Treatment Time: 46 Procedures billed for this date of service:: ex2, neuro1 Assessment: Patient's O2 became empty towards end of session and we did avoid gait training as we did not want to fatigue him. He has shown improvement per Tinettis by 2 points, and previously has been able to amb from our dept to his car with SC CGA and only 1 standing rest allowing for avg 92-93% O2 sats. Patient Education: Home Safety, Education of Plan of Care Patient demonstrates compliance with HEP?: Yes Short Term Goals Goal #1: pt independent with initial HEP Goal to be met by: 05/15/19 Progress towards Goal:: Progressing Goal #2: Improve dyn stand balance as noted by tinetti balance score Goal to be met by: 05/15/19 Progress towards Goal:: Progressing Comments:: Goal #3: Improve gait speed 0.7meters/sec with AAD Goal to be met by: 05/15/19 Progress towards Goal:: Progressing Comments:: will assess next session Goal #4: pt with improved BLE strength to 4 to 4+/5 Goal to be met by: 05/15/19 Progress towards Goal:: Progressing Senior Living Goals Goal #1: pt report no falls Goal to be met by: 06/05/19 Progress towards goal: Progressing Goal #2: pt demonstrate improved dyn stand balance consistent w mod risk falls Goal to be met by: 06/05/19 Goal #3: Improve gait speed > 0.8 meters/sec consistent w community ambulator Goal to be met by: 06/05/19 Goal #4: pt able to amb from waiting room into dept without LOB Goal to be met by: 06/05/19 Progress towards goal: Progressing Plan Dates of Senior Living Goals: 06/05/19 Expiration date of current Insurance Approval:: 06/05/19 PLAN: continue 2 more sessions, then discharge
== END 2019-05-26 23:59 ==
PROVIDERS: ATTEND Family Medicine
DX: R26.89 Other abnormalities of gait and mobility (principal); R29.898 Other symptoms and signs involving the musculoskeletal system

== ENCOUNTER 2021-06-15 16:47 | Inpatient (IN) ==
--- NOTE | 2021-06-15 16:57 | ED.PDOC ---
General ED Provider: Dr. SREEDHAR MARTÍNEZ Chief Complaint: Respiratory Complaint Stated Complaint: SOA, from detention, recent COVID, DNR Time Seen by Provider: 06/15/21 16:57 Mode of Arrival: Ambulance Information Source: [facility] Exam Limitations: Clinical condition Primary Care Provider: BULMARO PALMER Nursing and Triage Documentation Reviewed and Agree: Yes Does patient meet sepsis criteria?: No System Inflammatory Response Syndrome: Not Applicable Sepsis Protocol: For patient's 13 years and over: Temp is 96.8 and below OR 101 and greater Pulse >90 BPM Resp >20/minute Acutely Altered Mental Status Are patient's symptoms suggestive of a new infection, such as: -Pneumonia -Skin, Soft Tissue -Endocarditis -UTI -Bone, Joint Infection -Implantable Device -Acute Abdominal Infection -Wound Infection -Meningitis -Blood Stream Catheter Infection -Unknown Respiratory Complaint Exam Shortness of Air Complaint/Exam Symptoms Are: Still present Timing: Constant Initial Severity: Severe Current Severity: Severe Character: Reports Dyspnea at rest and Dyspnea on exertion Aggravating: Reports Recumbent position Alleviating: Reports EMS treatment and Oxygen Associated Signs and Symptoms: Reports Cough, Rapid breathing and Labored breathing History of Healthcare-Acquired Pneumonia: Lives at detention Pulmonary Embolism Risk Factors: Reports Bedrest Cardiac Risk Factors: Reports None Pseudomonas Risk Factors: Reports None Tuberculosis Risk Factors: Reports None Home Oxygen Use: No Recent Stress Test: No Recent Echo/LV Function: No Respiratory Distress: Moderate Stridor Present: No Tracheal Deviation: No Subcutaneous Emphysema: No Accessory Muscle Use: No Retractions: Not Present Diminished Breath Sounds: Yes Prolonged Expiratory Phase: No Unable to Speak Full Sentences: No Fatigue: Yes Leg Swelling: No Jonny's Sign Present: No Grunting Respirations: No Differential Diagnoses: Pneumonia Review of Systems Review Of Systems Constitutional: Reports Malaise, Weakness and Loss of appetite Eyes: Reports No symptoms Ears, Nose, Mouth, Throat: Reports No symptoms Respiratory: Reports Cough and Short of air Cardiac: Reports No symptoms GI: Reports No symptoms : Reports No symptoms Musculoskeletal: Reports No symptoms Skin: Reports No symptoms Neurological: Reports No symptoms Endocrine: Reports No symptoms Hematologic/Lymphatic: Reports No symptoms All Other Systems: Reviewed and Negative [facility] Social History Smoking and tobacco status: Never smoker Physical Exam Physical Exam Appearance: Reports Ill-appearing and Obese Ill-appearing: Moderate Pain Distress: None Eyes: Reports TORSTEN ENT: Reports Oropharynx normal Neck: Supple Respiratory: Reports Breath sounds diminished Cardiovascular: Reports RRR GI/: Reports Soft Musculoskeletal: Reports Limited strength Skin: Reports Warm and Dry Neurological: Reports Sensation intact, Motor intact and Alert to pain Psychiatric: Reports Affect appropriate and Mood appropriate Interpretation EKG Interpretation Time of EKG #1: 17:03 Rate: Normal (96) Rhythm: Other (junctional) Ectopy: None [place]: NL ST Segment: Other (NSSTW changes) Interpretation: As above. Looking for comparison EKG. Re-Evaluation Re-Evaluation Time of Re-Evaluation: 20:00 Status: Improved Vital Signs Stable: Yes Pain Level: No pain, holding sat around 90 % on 15 L by Physician Notification Case Discussed Physician Notified: Dr. Palmer Time of Notification: 20:00 Comments: Concerning admission, place in SCU as COVID pneumonia. Critical Care Note Critical Care Note Total Critical Care Time (mins): 30 Comments: CC for severe hypoxia and concern over lung damage from COVID pneumonia. Course Course Hematology/Chemistry: 06/15/21 17:29 06/15/21 17:29 Orders, Labs, Meds: Lab Review 06/15/21 06/15/21 06/15/21 17:06 17:29 17:29 WBC 7.10 RBC 4.24 L Hgb 12.0 L Hct 37.9 L MCV 89.4 MCH 28.3 MCHC 31.7 L RDW Coeff of Janet 13.6 Plt Count 354 Immature Gran % (Auto) 0.6 Neut % (Auto) 77.8 H Lymph % (Auto) 13.1 Benzie % (Auto) 8.3 Eos % (Auto) 0.1 Baso % (Auto) 0.1 Neut # (Auto) 5.5 Lymph # (Auto) 0.9 Benzie # (Auto) 0.6 Eos # (Auto) 0.0 Baso # (Auto) 0.0 Immature Gran # (Auto) 0.0 ESR Puncture Site Rrad Base Excess 2.4 O2 Saturation 82.4 L ABG pH 7.52 H* ABG pCO2 31.0 L ABG pO2 41.0 L* ABG HCO3 25.3 ABG Total CO2 26.3 H Neftali Test + Hemoglobin 0.8 Oxyhemoglobin 80.7 L Carboxyhemoglobin 1.1 Total Hemoglobin 12.9 O2 Delivery Device Cannula+nonrb Oxygen Liter Flow 15.00 Sodium 139.7 Potassium 4.26 Chloride 105.0 Carbon Dioxide 23.9 Anion Gap 15.06 BUN 19.8 Creatinine 0.89 Estimated GFR (MDRD) 82.00 BUN/Creatinine Ratio 22.24 Glucose 132.7 H Calcium 8.71 Total Bilirubin 0.64 AST 56.8 ALT 41.2 Alkaline Phosphatase 107.6 Troponin I < 0.012 NT-Pro-B Natriuret Pep 958.000 H Total Protein 7.97 Albumin 3.74 Globulin 4.23 Albumin/Globulin Ratio 0.88 Procalcitonin Adenovirus (PCR) B. pertussis DNA (PCR) B.parapertussis DNA PCR C. pneumoniae DNA (PCR) Coronavirus OC43 (PCR) Coronavirus HKU1 (PCR) Coronavirus 229E (PCR) Coronavirus NL63 (PCR) Human Metapneumovir PCR Influenza Type A (PCR) Influenza B (RT-PCR) M. pneumoniae (PCR) Parainfluenza 1 (PCR) Parainfluenza 2 (PCR) Parainfluenza 3 (PCR) Parainfluenza 4 (PCR) RSV (PCR) Entero/Rhino (PCR) SARS-CoV-2 (PCR) 06/15/21 06/15/21 06/15/21 17:39 17:39 20:34 WBC RBC Hgb Hct MCV MCH MCHC RDW Coeff of Janet Plt Count Immature Gran % (Auto) Neut % (Auto) Lymph % (Auto) Benzie % (Auto) Eos % (Auto) Baso % (Auto) Neut # (Auto) Lymph # (Auto) Benzie # (Auto) Eos # (Auto) Baso # (Auto) Immature Gran # (Auto) ESR 91 H Puncture Site Base Excess O2 Saturation ABG pH ABG pCO2 ABG pO2 ABG HCO3 ABG Total CO2 Neftali Test Hemoglobin Oxyhemoglobin Carboxyhemoglobin Total Hemoglobin O2 Delivery Device Oxygen Liter Flow Sodium Potassium Chloride Carbon Dioxide Anion Gap BUN Creatinine Estimated GFR (MDRD) BUN/Creatinine Ratio Glucose Calcium Total Bilirubin AST ALT Alkaline Phosphatase Troponin I NT-Pro-B Natriuret Pep Total Protein Albumin Globulin Albumin/Globulin Ratio Procalcitonin < 0.05 Adenovirus (PCR) Not detected B. pertussis DNA (PCR) Not detected B.parapertussis DNA PCR Not detected C. pneumoniae DNA (PCR) Not detected Coronavirus OC43 (PCR) Not detected Coronavirus HKU1 (PCR) Not detected Coronavirus 229E (PCR) Not detected Coronavirus NL63 (PCR) Not detected Human Metapneumovir PCR Not detected Influenza Type A (PCR) Not detected Influenza B (RT-PCR) Not detected M. pneumoniae (PCR) Not detected Parainfluenza 1 (PCR) Not detected Parainfluenza 2 (PCR) Not detected Parainfluenza 3 (PCR) Not detected Parainfluenza 4 (PCR) Not detected RSV (PCR) Not detected Entero/Rhino (PCR) Not detected SARS-CoV-2 (PCR) Detected H Orders Category Date Time Status ABG DRAW REQUEST Stat CARDIO 06/15/21 17:08 Completed EKG-(ED ONLY) Stat CARDIO 06/15/21 17:06 Completed NPO REMINDER: IMAGING ONCE CARE 06/15/21 20:22 Completed ED APPLY O2 .ONCE EMERGENCY 06/15/21 17:06 Active ABG COOX Stat LAB 06/15/21 17:06 Completed C-REACTIVE PROTEIN Stat LAB 06/15/21 22:00 Received CBC W/ AUTO DIFF Stat LAB 06/15/21 17:29 Completed COMPREHENSIVE METABOLIC PANEL Stat LAB 06/15/21 17:29 Completed ESR Stat LAB 06/15/21 17:39 Completed FERRITIN Stat LAB 06/15/21 17:39 Received LACTIC ACID Stat LAB 06/15/21 22:00 Completed NT-PROBNP Stat LAB 06/15/21 17:29 Completed PROCALCITONIN Stat LAB 06/15/21 17:39 Completed RESPIRATORY PANEL 2.1 (PCR) Stat LAB 06/15/21 20:34 Completed TROPONIN I Stat LAB 06/15/21 17:29 Completed Ceftriaxone/D5w 1 gm Premix [Rocephin 1 gm/50 ml D5w] MEDS 06/15/21 21:45 Discontinued 1 gm in 50 ml IV ONCE CHEST, 1V AP ONLY Stat RADS 06/15/21 17:[address] CHEST W/CONTRAST Stat RADS 06/15/21 20:21 Completed Medications Generic Name Dose Route Start Last Admin Trade Name Freq PRN Reason Stop Dose Admin Enoxaparin Sodium 40 mg 06/16/21 09:00 Enoxaparin Sodium 40 Mg/0.4 Ml Syr SUBCUT DAILY PAUL Potassium Chloride/Sodium 2,000 mls @ 75 mls/hr 06/15/21 23:00 Chloride/ Sodium Chloride IV .[id number] PAUL Discontinued Medications Generic Name Dose Route Start Last Admin Trade Name Freq PRN Reason Stop Dose Admin CEFTRIAXONE/D5W 1 GM PREMIX 1 gm in 50 mls @ 75 mls/hr 06/15/21 21:45 Rocephin 1 Gm/50 Ml D5w IV 06/15/21 22:24 ONCE ONE Potassium Chloride/Sodium Chloride 1,000 mls @ 75 mls/hr 06/15/21 23:00 Sodium Chloride 0.9%-Kcl 20 Meq IV .[id number] PAUL Vital Signs: Temp Pulse Resp BP Pulse Ox 06/15/21 19:36 80 20 133/62 84 L 06/15/21 16:50 97.0 F L 92 H 20 133/62 75 L Discharge Plan Discharge Patient Disposition: ADMITTED INPATIENT Discharge Problem: Pneumonia due to COVID-19 virus ED Provider: SREEDHAR MARTÍNEZ Condition: Serious Physician Progress Note: [Admit to SCU for COVID pneumonia. Oxygenate as best as possible. DNR. He would not tolerate BiPap.]
[2021-06-15 17:31] LABS: BASOPHILS % (AUTO) 0.1 % (0.0-3.0); EOSINOPHILS % (AUTO) 0.1 % (0.0-7.0); HEMATOCRIT 37.9 % (42.0-52.0); IMMATURE GRANULOCYTE % (AUTO) 0.6 % (0.0-5.0); LYMPHOCYTES # (AUTO) 0.9 K/uL (0.60-3.4); LYMPHOCYTES % (AUTO) 13.1 (10.0-50.0); MEAN CORPUSCULAR HEMOGLOBIN 28.3 pg (27.0-31.0); MEAN CORPUSCULAR HGB CONC 31.7 (31.8-35.4); MEAN CORPUSCULAR VOLUME 89.4 fl (80.0-94.0); MONOCYTES # (AUTO) 0.6 K/uL (0.4-2.0); MONOCYTES % (AUTO) 8.3 (0-10); NEUTROPHILS # (AUTO) 5.5 K/ul (2.0-6.9); NEUTROPHILS % (AUTO) 77.8 % (42.2-75.2); PLATELET COUNT 354 10^3/uL (140-440); RDW COEFFICIENT OF VARIATION 13.6 % (11.6-14.8); RED BLOOD COUNT 4.24 10^6/ul (4.70-6.10)
[2021-06-15 17:38] LABS: ABG O2 HGB 80.7 % (95-100); BEecf 2.4 (-2.0-3.0); COHb 1.1 (0.5-1.5); HCO3 25.3 (21-28); MetHb 0.8 (0-1.5); TCO2 26.3 (19-24); sO2 82.4 % (94-98); tHb 12.9 g/dl (11.7-17.4)
[2021-06-15 17:40] LABS: ABG PH 7.52 (7.35-7.45)
[2021-06-15 17:43] LABS: ALANINE AMINOTRANSFERASE 41.2 U/L (0-50); ALBUMIN 3.74 g/dL (3.5-5.0); ALKALINE PHOSPHATASE 107.6 U/L (56-119); ASPARTATE AMINO TRANSFERASE 56.8 U/L (17-59); BILIRUBIN,TOTAL 0.64 mg/dL (0.2-1.3); BLOOD UREA NITROGEN 19.8 mg/dL (9-20); CALCIUM 8.71 mg/dL (8.4-10.2); CARBON DIOXIDE 23.9 mmol/L (22-30.0); CREATININE 0.89 mg/dL (0.60-1.10); GLUCOSE 132.7 mg/dL (74-106); POTASSIUM 4.26 mmol/L (3.5-5.1); SODIUM 139.7 mmol/L (134.5-145); TOTAL PROTEIN 7.97 g/dL (6.3-8.2)
--- NOTE | 2021-06-15 17:43 | DI ---
EXAM: One view chest. HISTORY: Dyspnea. COMPARISON: 04/28/2016 chest x-ray. FINDINGS: There are increased patchy opacities in the left upper lung. The cardiac silhouette is normal. There is no pulmonary edema identified. No acute abnormality invo lving the osseous structures. IMPRESSION: Left upper lung patchy opacities may represent pneumonia versus mass. A follow-up chest x-ray to resolution is recommended.
[2021-06-15 17:57] LABS: TROPONIN I < 0.012 ng/ml (0.0000-0.120)
[2021-06-15 20:39] LABS: BORDETELLA PARAPERTUSSIS (PCR) NOT DETECTED (NOT DETECT); BORDETELLA PERTUSSIS (PCR) NOT DETECTED (NOT DETECT); CHLAMYDIA PNEUMONIAE (PCR) NOT DETECTED (NOT DETECT); CORONAVIRUS 229E (PCR) NOT DETECTED (NOT DETECT); CORONAVIRUS HKU1 (PCR) NOT DETECTED (NOT DETECT); CORONAVIRUS NL63 (PCR) NOT DETECTED (NOT DETECT); CORONAVIRUS OC43 (PCR) NOT DETECTED (NOT DETECT); HUMAN METAPNEUMOVIRUS (PCR) NOT DETECTED (NOT DETECT); HUMAN RHINOVIRUS/ENTEROV (PCR) NOT DETECTED (NOT DETECT); INFLUENZA B (PCR) NOT DETECTED (NOT DETECT); MYCOPLASMA PNEUMONIAE (PCR) NOT DETECTED (NOT DETECT); PARAINFLUENZA VIRUS 1 (PCR) NOT DETECTED (NOT DETECT); PARAINFLUENZA VIRUS 2 (PCR) NOT DETECTED (NOT DETECT); PARAINFLUENZA VIRUS 3 (PCR) NOT DETECTED (NOT DETECT); PARAINFLUENZA VIRUS 4 (PCR) NOT DETECTED (NOT DETECT); RESPIRATORY SYNCYTIAL V (PCR) NOT DETECTED (NOT DETECT)
--- NOTE | 2021-06-15 21:25 | CT ---
EXAM: CT chest with contrast HISTORY: Pneumonia versus lung mass COMPARISON: Radiograph 06/15/2021 TECHNIQUE: CT chest performed with intravenous contrast. Coronal and sagittal reformatted images ob tained. FINDINGS: Thoracic inlet unremarkable. Heart normal in size. No pericardial effusion. Aorta jane l in caliber. Small hiatal hernia. Liver diffusely decreased attenuation. Patient status post chol ecystectomy. Right renal cyst measures 4.6 cm. No acute abnormalities of the bones. Degenerative c hange in the spine. No lymphadenopathy identified in the chest. Calcified lymph nodes, consistent w ith old granulomatous disease. Ill-defined nodule in the left upper lobe measuring 3.3 x 2.0 cm with surrounding linear ground-glass opacities. Mild patchy ground-glass in the inferior aspect of the l eft upper lobe. Bibasilar atelectasis and/or scarring. Mild right apical atelectasis and/or scarrin g. IMPRESSION: 1. Ill-defined nodular opacity in the left upper lobe measuring 3.3 cm with surrounding linear groun d-glass. Malignancy is within the differential diagnosis and tissue sampling or PET-CT recommended. 2. Mild patchy ground-glass in the inferior aspect of the left upper lobe, likely representing pneum onia / pneumonitis. 3. Bibasilar atelectasis and/or scarring. 4. Hepatic steatosis All CT scans are performed using dose optimization techniques as appropriate to the performed exam an d include at least one of the following: Automated exposure control, adjustment of the mA and/or kV according t o size, and the use of iterative reconstruction technique.
[2021-06-15 21:27] LABS: ADENOVIRUS (PCR) NOT DETECTED (NOT DETECT); SARS_COV_2 (PCR) DETECTED (NOT DETECT)
[2021-06-15] MEDS ORDERED: ROCEPHIN 1 GM/50 ML D5W 1 GM/50 ML BAG IV ONE (21:45)
[2021-06-15 22:38] LABS: ERYTHROCYTE SEDIMENTATION RATE 91 mm/hr (0-15)
[2021-06-15] MEDS ORDERED: POTASSIUM CHLORIDE 20 MEQ IV SCH ×2 (23:00)
[2021-06-15] MEDS ORDERED: SODIUM CHLORIDE 0.9%-KCL 20 MEQ 1,000 ML IV SCH (23:00)
[2021-06-15] MEDS ORDERED: SODIUM CHLORIDE 0.9% IV SCH ×2 (23:00)
[2021-06-16] MEDS ORDERED: SODIUM CHLORIDE 0.9%-KCL 20 MEQ 1,000 ML IV SCH (00:30)
[2021-06-16 01:29] VITALS: BMI 32.0
[2021-06-16] MEDS: SODIUM CHLORIDE 1,000 ML IV SCH ×2 (02:46→16:15)
[2021-06-16] MEDS: LOVENOX SUBCUT SCH (14:08)
[2021-06-16] MEDS ORDERED: TYLENOL PO PRN (17:10)
[2021-06-16] MEDS ORDERED: GLYCERIN SUPPOSITORY RC PRN (17:10)
[2021-06-16] MEDS: DULCOLAX PO SCH (20:20)
[2021-06-16] MEDS: LIPITOR PO SCH (20:20)
[2021-06-16] MEDS: DECADRON IVP SCH (20:20)
[2021-06-16] MEDS: NORCO 5-325 PO PRN (20:21)
[2021-06-16] MEDS: TEGRETOL PO SCH (20:21)
[2021-06-16] MEDS: FLOMAX PO SCH (20:21)
[2021-06-16] MEDS ORDERED: COMBIVENT RESPIMAT INHALER IH SCH ×2 (20:30→21:00)
[2021-06-16] MEDS: KETOTIFEN FUMARATE EACHEYE SCH (21:00)
[2021-06-16] MEDS ORDERED: NON-FORMULARY MEDICATION (Potassium Chloride 10 mEq tablet,ER particles/crystals) PO SCH (21:00)
[2021-06-16] MEDS: COMBIVENT RESPIMAT INHALER IH SCH (21:32)
[2021-06-17] MEDS: SODIUM CHLORIDE 1,000 ML IV SCH ×2 (05:48→19:57)
[2021-06-17] MEDS: MIRALAX PO SCH (09:04)
[2021-06-17] MEDS: MICRO-K CAP PO SCH ×2 (09:05→16:33)
[2021-06-17] MEDS: DECADRON IVP SCH ×2 (09:05→20:32)
[2021-06-17] MEDS: VITAMIN D PO SCH (09:05)
[2021-06-17] MEDS: TEGRETOL PO SCH ×2 (09:06→20:33)
[2021-06-17] MEDS: LASIX TAB PO SCH (09:06)
[2021-06-17] MEDS: DULCOLAX PO SCH ×2 (09:06→20:28)
[2021-06-17] MEDS: VITAMIN C PO SCH (09:06)
[2021-06-17] MEDS: NORVASC PO SCH (09:06)
[2021-06-17] MEDS: PROTONIX PO SCH (09:07)
[2021-06-17] MEDS: LOVENOX SUBCUT SCH (09:07)
[2021-06-17] MEDS: KETOTIFEN FUMARATE EACHEYE SCH ×2 (09:12→20:34)
[2021-06-17] MEDS: COMBIVENT RESPIMAT INHALER IH SCH ×4 (09:20→20:32)
[2021-06-17] MEDS: NORCO 5-325 PO PRN (16:54)
[2021-06-17] MEDS: ROCEPHIN 1 GM/50 ML D5W 1 GM/50 ML BAG IV SCH (20:00)
[2021-06-17] MEDS ORDERED: VANCOMYCIN 1 GM in SODIUM CHLORIDE 250 ML IV SCH (20:00)
[2021-06-17] MEDS: ZITHROMAX PO SCH (20:33)
[2021-06-17] MEDS: LIPITOR PO SCH (20:33)
[2021-06-17] MEDS: FLOMAX PO SCH (20:33)
[2021-06-17] MEDS: HUMULIN R SUBCUT PRN (20:51)
[2021-06-18 05:39] LABS: BASOPHILS % (AUTO) 0.1 % (0.0-3.0); HEMATOCRIT 34.2 % (42.0-52.0); HEMOGLOBIN 10.4 g/dl (14.0-18.0); IMMATURE GRANULOCYTE # (AUTO) 0.1 (0.0-1.0); IMMATURE GRANULOCYTE % (AUTO) 0.8 % (0.0-5.0); LYMPHOCYTES # (AUTO) 0.9 K/uL (0.60-3.4); LYMPHOCYTES % (AUTO) 11.2 (10.0-50.0); MEAN CORPUSCULAR HEMOGLOBIN 27.7 pg (27.0-31.0); MEAN CORPUSCULAR HGB CONC 30.4 (31.8-35.4); MEAN CORPUSCULAR VOLUME 91.2 fl (80.0-94.0); MONOCYTES # (AUTO) 0.5 K/uL (0.4-2.0); MONOCYTES % (AUTO) 6.5 (0-10); NEUTROPHILS # (AUTO) 6.8 K/ul (2.0-6.9); NEUTROPHILS % (AUTO) 81.4 % (42.2-75.2); PLATELET COUNT 393 10^3/uL (140-440); RDW COEFFICIENT OF VARIATION 13.7 % (11.6-14.8); RED BLOOD COUNT 3.75 10^6/ul (4.70-6.10); WHITE BLOOD COUNT 8.36 K/ul (4.2-10.2)
[2021-06-18 05:43] LABS: ALANINE AMINOTRANSFERASE 21.9 U/L (0-50); ALBUMIN 3.14 g/dL (3.5-5.0); ALKALINE PHOSPHATASE 86.6 U/L (56-119); ASPARTATE AMINO TRANSFERASE 26.9 U/L (17-59); BILIRUBIN,TOTAL 0.25 mg/dL (0.2-1.3); BLOOD UREA NITROGEN 16.2 mg/dL (9-20); CALCIUM 8.26 mg/dL (8.4-10.2); CARBON DIOXIDE 24.9 mmol/L (22-30.0); CHLORIDE 109.9 mmol/L (98-107); CREATININE 0.98 mg/dL (0.60-1.10); POTASSIUM 4.19 mmol/L (3.5-5.1); SODIUM 143.5 mmol/L (134.5-145); TOTAL PROTEIN 6.9 g/dL (6.3-8.2)
[2021-06-18] MEDS: LASIX TAB PO SCH (06:02)
[2021-06-18] MEDS: PROTONIX PO SCH (06:02)
[2021-06-18] MEDS: VANCOMYCIN 1 GM in SODIUM CHLORIDE 250 ML IV SCH ×2 (08:57→20:21)
[2021-06-18] MEDS: COMBIVENT RESPIMAT INHALER IH SCH ×4 (09:01→20:58)
[2021-06-18] MEDS: MIRALAX PO SCH (09:01)
[2021-06-18] MEDS: MICRO-K CAP PO SCH ×2 (09:02→17:52)
[2021-06-18] MEDS: VITAMIN C PO SCH (09:02)
[2021-06-18] MEDS: TEGRETOL PO SCH ×2 (09:02→20:23)
[2021-06-18] MEDS: VITAMIN D PO SCH (09:02)
[2021-06-18] MEDS: NORVASC PO SCH (09:02)
[2021-06-18] MEDS: LOVENOX SUBCUT SCH (09:03)
[2021-06-18] MEDS: DECADRON IVP SCH ×2 (09:03→21:19)
[2021-06-18] MEDS: KETOTIFEN FUMARATE EACHEYE SCH ×2 (09:04→21:05)
[2021-06-18] MEDS: DULCOLAX PO SCH ×2 (09:04→20:23)
[2021-06-18] MEDS: SODIUM CHLORIDE 1,000 ML IV SCH (12:52)
[2021-06-18] MEDS: ZITHROMAX PO SCH (20:23)
[2021-06-18] MEDS: LIPITOR PO SCH (20:23)
[2021-06-18] MEDS: FLOMAX PO SCH (20:24)
[2021-06-18] MEDS: NORCO 5-325 PO PRN (20:31)
[2021-06-18] MEDS: ROCEPHIN 1 GM/50 ML D5W 1 GM/50 ML BAG IV SCH (21:49)
[2021-06-19] MEDS: SODIUM CHLORIDE 1,000 ML IV SCH ×3 (02:03→17:26)
[2021-06-19 04:44] LABS: BASOPHILS % (AUTO) 0.1 % (0.0-3.0); HEMATOCRIT 31.1 % (42.0-52.0); HEMOGLOBIN 9.7 g/dl (14.0-18.0); IMMATURE GRANULOCYTE # (AUTO) 0.1 (0.0-1.0); LYMPHOCYTES # (AUTO) 0.7 K/uL (0.60-3.4); LYMPHOCYTES % (AUTO) 9.9 (10.0-50.0); MEAN CORPUSCULAR HEMOGLOBIN 28.3 pg (27.0-31.0); MEAN CORPUSCULAR HGB CONC 31.2 (31.8-35.4); MEAN CORPUSCULAR VOLUME 90.7 fl (80.0-94.0); MONOCYTES # (AUTO) 0.4 K/uL (0.4-2.0); MONOCYTES % (AUTO) 6.5 (0-10); NEUTROPHILS # (AUTO) 5.6 K/ul (2.0-6.9); NEUTROPHILS % (AUTO) 82.5 % (42.2-75.2); PLATELET COUNT 334 10^3/uL (140-440); RDW COEFFICIENT OF VARIATION 13.7 % (11.6-14.8); RED BLOOD COUNT 3.43 10^6/ul (4.70-6.10); WHITE BLOOD COUNT 6.74 K/ul (4.2-10.2)
[2021-06-19 04:57] LABS: BLOOD UREA NITROGEN 17.5 mg/dL (9-20); CALCIUM 8.01 mg/dL (8.4-10.2); CARBON DIOXIDE 25.4 mmol/L (22-30.0); CHLORIDE 111.4 mmol/L (98-107); CREATININE 0.94 mg/dL (0.60-1.10); GLUCOSE 146.2 mg/dL (74-106); POTASSIUM 4.46 mmol/L (3.5-5.1); SODIUM 141.7 mmol/L (134.5-145)
[2021-06-19] MEDS: HUMULIN R SUBCUT PRN (05:49)
[2021-06-19] MEDS: PROTONIX PO SCH (05:50)
[2021-06-19] MEDS: LASIX TAB PO SCH (05:50)
[2021-06-19] MEDS: VITAMIN D PO SCH (09:22)
[2021-06-19] MEDS: VITAMIN C PO SCH (09:23)
[2021-06-19] MEDS: MICRO-K CAP PO SCH ×2 (09:23→17:02)
[2021-06-19] MEDS: NORVASC PO SCH (09:24)
[2021-06-19] MEDS: TEGRETOL PO SCH ×2 (09:24→20:40)
[2021-06-19] MEDS: DULCOLAX PO SCH ×2 (09:24→20:40)
[2021-06-19] MEDS: DECADRON IVP SCH ×2 (09:25→20:39)
[2021-06-19] MEDS: NORCO 5-325 PO PRN (09:25)
[2021-06-19] MEDS: MIRALAX PO SCH (09:25)
[2021-06-19] MEDS: LOVENOX SUBCUT SCH (09:26)
[2021-06-19] MEDS: COMBIVENT RESPIMAT INHALER IH SCH ×5 (09:26→21:00)
[2021-06-19] MEDS: KETOTIFEN FUMARATE EACHEYE SCH ×2 (09:42→20:41)
[2021-06-19] MEDS: VANCOMYCIN 1 GM in SODIUM CHLORIDE 250 ML IV SCH ×2 (09:51→21:47)
[2021-06-19] MEDS ORDERED: LASIX IVP ONE (10:55)
[2021-06-19] MEDS ORDERED: ATROVENT HFA INHALER (PER PUFF-WITH SPACER) IH SCH (14:00)
[2021-06-19] MEDS ORDERED: DUONEB NEB SCH (14:00)
[2021-06-19] MEDS ORDERED: VENTOLIN HFA (PER PUFF-WITH SPACER) IH SCH (14:00)
[2021-06-19] MEDS ORDERED: DICLOFENAC SODIUM 1% TP PRN (17:50)
[2021-06-19] MEDS: ROCEPHIN 1 GM/50 ML D5W 1 GM/50 ML BAG IV SCH (20:39)
[2021-06-19] MEDS: ZITHROMAX PO SCH (20:40)
[2021-06-19] MEDS: FLOMAX PO SCH (20:40)
[2021-06-19] MEDS: LIPITOR PO SCH (20:40)
[2021-06-20 05:01] LABS: BLOOD UREA NITROGEN 21.7 mg/dL (9-20); CALCIUM 7.95 mg/dL (8.4-10.2); CARBON DIOXIDE 28.3 mmol/L (22-30.0); CHLORIDE 110.5 mmol/L (98-107); GLUCOSE 143.4 mg/dL (74-106); POTASSIUM 4.22 mmol/L (3.5-5.1); SODIUM 142.1 mmol/L (134.5-145)
[2021-06-20] MEDS: LASIX TAB PO SCH (05:42)
[2021-06-20] MEDS: PROTONIX PO SCH (05:42)
[2021-06-20] MEDS: COMBIVENT RESPIMAT INHALER IH SCH ×4 (08:49→20:17)
[2021-06-20] MEDS: SODIUM CHLORIDE 1,000 ML IV SCH (08:49)
[2021-06-20] MEDS: VITAMIN D PO SCH (08:50)
[2021-06-20] MEDS: MICRO-K CAP PO SCH ×2 (08:50→18:32)
[2021-06-20] MEDS: VITAMIN C PO SCH (08:50)
[2021-06-20] MEDS: TEGRETOL PO SCH ×2 (08:50→20:18)
[2021-06-20] MEDS: NORVASC PO SCH (08:50)
[2021-06-20] MEDS: VANCOMYCIN 1 GM in SODIUM CHLORIDE 250 ML IV SCH ×2 (08:50→09:40)
[2021-06-20] MEDS: DULCOLAX PO SCH ×2 (08:50→20:19)
[2021-06-20] MEDS: MIRALAX PO SCH (08:51)
[2021-06-20] MEDS: LOVENOX SUBCUT SCH (08:51)
[2021-06-20] MEDS: DECADRON IVP SCH ×2 (08:51→20:18)
[2021-06-20] MEDS: KETOTIFEN FUMARATE EACHEYE SCH ×2 (09:00→20:11)
[2021-06-20] MEDS ORDERED: VANCOMYCIN 1 GM in SODIUM CHLORIDE 250 ML IV ONE ×4 (15:00)
[2021-06-20] MEDS: ROCEPHIN 1 GM/50 ML D5W 1 GM/50 ML BAG IV SCH (20:17)
[2021-06-20] MEDS: LIPITOR PO SCH (20:18)
[2021-06-20] MEDS: FLOMAX PO SCH (20:18)
[2021-06-21] MEDS: PROTONIX PO SCH (06:01)
[2021-06-21] MEDS: LASIX TAB PO SCH (06:01)
[2021-06-21] MEDS: VANCOMYCIN 750 MG in SODIUM CHLORIDE 250 ML IV SCH ×2 (09:23→20:55)
[2021-06-21] MEDS: DECADRON IVP SCH ×2 (09:24→20:56)
[2021-06-21] MEDS: VITAMIN D PO SCH (09:25)
[2021-06-21] MEDS: VITAMIN C PO SCH (09:25)
[2021-06-21] MEDS: MICRO-K CAP PO SCH ×2 (09:26→18:13)
[2021-06-21] MEDS: NORVASC PO SCH (09:26)
[2021-06-21] MEDS: NORCO 5-325 PO PRN (09:26)
[2021-06-21] MEDS: TEGRETOL PO SCH ×2 (09:26→20:56)
[2021-06-21] MEDS: MIRALAX PO SCH (09:27)
[2021-06-21] MEDS: LOVENOX SUBCUT SCH (09:27)
[2021-06-21] MEDS: KETOTIFEN FUMARATE EACHEYE SCH ×2 (09:27→21:01)
[2021-06-21] MEDS: COMBIVENT RESPIMAT INHALER IH SCH ×4 (09:28→20:56)
[2021-06-21] MEDS: DULCOLAX PO SCH ×2 (09:28→20:56)
[2021-06-21] MEDS: ROCEPHIN 1 GM/50 ML D5W 1 GM/50 ML BAG IV SCH (20:01)
[2021-06-21] MEDS: FLOMAX PO SCH (20:56)
[2021-06-21] MEDS: LIPITOR PO SCH (20:56)
[2021-06-21] MEDS: HUMULIN R SUBCUT PRN (20:57)
[2021-06-22 05:35] LABS: BASOPHILS % (AUTO) 0.2 % (0.0-3.0); HEMATOCRIT 30.8 % (42.0-52.0); HEMOGLOBIN 9.7 g/dl (14.0-18.0); IMMATURE GRANULOCYTE # (AUTO) 0.2 (0.0-1.0); IMMATURE GRANULOCYTE % (AUTO) 2.1 % (0.0-5.0); LYMPHOCYTES # (AUTO) 0.9 K/uL (0.60-3.4); LYMPHOCYTES % (AUTO) 8.3 (10.0-50.0); MEAN CORPUSCULAR HEMOGLOBIN 28.9 pg (27.0-31.0); MEAN CORPUSCULAR HGB CONC 31.5 (31.8-35.4); MEAN CORPUSCULAR VOLUME 91.7 fl (80.0-94.0); MONOCYTES # (AUTO) 0.9 K/uL (0.4-2.0); MONOCYTES % (AUTO) 8.1 (0-10); NEUTROPHILS # (AUTO) 9.1 K/ul (2.0-6.9); NEUTROPHILS % (AUTO) 81.3 % (42.2-75.2); PLATELET COUNT 283 10^3/uL (140-440); RDW COEFFICIENT OF VARIATION 14.3 % (11.6-14.8); RED BLOOD COUNT 3.36 10^6/ul (4.70-6.10); WHITE BLOOD COUNT 11.19 K/ul (4.2-10.2)
[2021-06-22] MEDS: PROTONIX PO SCH (06:08)
[2021-06-22] MEDS: LASIX TAB PO SCH (06:08)
[2021-06-22] MEDS: DECADRON IVP SCH (08:46)
[2021-06-22] MEDS: COMBIVENT RESPIMAT INHALER IH SCH ×5 (08:46→21:11)
[2021-06-22] MEDS: MIRALAX PO SCH (08:46)
[2021-06-22] MEDS: VITAMIN D PO SCH (08:47)
[2021-06-22] MEDS: TEGRETOL PO SCH ×2 (08:48→21:12)
[2021-06-22] MEDS: DULCOLAX PO SCH ×2 (08:48→21:12)
[2021-06-22] MEDS: MICRO-K CAP PO SCH ×2 (08:48→17:11)
[2021-06-22] MEDS: VITAMIN C PO SCH (08:48)
[2021-06-22] MEDS: NORVASC PO SCH (08:48)
[2021-06-22] MEDS: KETOTIFEN FUMARATE EACHEYE SCH ×2 (08:51→21:13)
[2021-06-22] MEDS: LOVENOX SUBCUT SCH (08:51)
[2021-06-22] MEDS: VANCOMYCIN 750 MG in SODIUM CHLORIDE 250 ML IV SCH (09:01)
--- NOTE | 2021-06-22 14:56 | DI ---
EXAM: Chest one view, frontal view only. HISTORY: Pneumonia. COMPARISON: 06/04/2021. FINDINGS: The heart size is normal. There is no pulmonary vascular congestion. Left upper lung con solidation again noted. Increased opacity in the left retrocardiac region since the prior study. Ot herwise, the lungs are clear. No pleural effusion or pneumothorax is seen. No acute osseous abnorma lity is identified. Degenerative changes in the shoulders. IMPRESSION: 1. Increased left retrocardiac opacity may represent worsening pneumonia. 2. Stable left upper lung nodular consolidation.
[2021-06-22] MEDS: HUMULIN R SUBCUT PRN (17:38)
[2021-06-22] MEDS: LIPITOR PO SCH (21:11)
[2021-06-22] MEDS: OMNICEF PO SCH (21:11)
[2021-06-22] MEDS: FLOMAX PO SCH (21:12)
[2021-06-23] MEDS: LASIX TAB PO SCH (06:23)
[2021-06-23] MEDS: PROTONIX PO SCH (06:23)
[2021-06-23] MEDS: MIRALAX PO SCH (09:04)
[2021-06-23] MEDS: VITAMIN C PO SCH (09:05)
[2021-06-23] MEDS: OMNICEF PO SCH ×2 (09:05→20:56)
[2021-06-23] MEDS: MICRO-K CAP PO SCH ×2 (09:05→16:47)
[2021-06-23] MEDS: TEGRETOL PO SCH ×2 (09:05→20:56)
[2021-06-23] MEDS: VITAMIN D PO SCH (09:05)
[2021-06-23] MEDS: DULCOLAX PO SCH ×2 (09:05→20:59)
[2021-06-23] MEDS: PREDNISONE PO SCH (09:05)
[2021-06-23] MEDS: NORVASC PO SCH (09:05)
[2021-06-23] MEDS: COMBIVENT RESPIMAT INHALER IH SCH ×4 (09:06→21:00)
[2021-06-23] MEDS: LOVENOX SUBCUT SCH (09:07)
[2021-06-23] MEDS: KETOTIFEN FUMARATE EACHEYE SCH ×2 (09:20→21:02)
[2021-06-23] MEDS: HUMULIN R SUBCUT PRN (16:48)
[2021-06-23] MEDS: LIPITOR PO SCH (20:56)
[2021-06-23] MEDS: FLOMAX PO SCH (20:57)
[2021-06-24 05:18] LABS: HEMATOCRIT 32.4 % (42.0-52.0)
[2021-06-24 05:30] LABS: CALCIUM 7.95 mg/dL (8.4-10.2); CARBON DIOXIDE 28.8 mmol/L (22-30.0); CHLORIDE 109.2 mmol/L (98-107); CREATININE 0.94 mg/dL (0.60-1.10); GLUCOSE 125.1 mg/dL (74-106); POTASSIUM 4.63 mmol/L (3.5-5.1); SODIUM 142.7 mmol/L (134.5-145)
[2021-06-24] MEDS: PROTONIX PO SCH (06:47)
[2021-06-24] MEDS: LASIX TAB PO SCH (06:47)
[2021-06-24] MEDS: LOVENOX SUBCUT SCH (10:40)
[2021-06-24] MEDS: VITAMIN D PO SCH (10:41)
[2021-06-24] MEDS: DULCOLAX PO SCH (10:41)
[2021-06-24] MEDS: NORVASC PO SCH (10:41)
[2021-06-24] MEDS: VITAMIN C PO SCH (10:41)
[2021-06-24] MEDS: MIRALAX PO SCH (10:41)
[2021-06-24] MEDS: TEGRETOL PO SCH (10:42)
[2021-06-24] MEDS: PREDNISONE PO SCH (10:42)
[2021-06-24] MEDS: MICRO-K CAP PO SCH (10:42)
[2021-06-24] MEDS: KETOTIFEN FUMARATE EACHEYE SCH (10:43)
[2021-06-24] MEDS: COMBIVENT RESPIMAT INHALER IH SCH ×3 (10:43→15:24)
[2021-06-24] MEDS: OMNICEF PO SCH (10:43)
[2021-06-24 15:36] VITALS: BP 154/70; TEMP 98
== END 2021-06-24 17:00 | DRG 177 ==
LOC: ED 16:47 → SCU 21:54 → MEDSURG A 06-18 16:31
PROVIDERS: ADMIT Family Medicine; ATTEND Family Medicine
DX: G31.89 Other specified degenerative diseases of nervous system; R63.0 Anorexia; R53.1 Weakness; R59.0 Localized enlarged lymph nodes; E66.9 Obesity, unspecified; R53.83 Other fatigue; J12.82 Pneumonia due to coronavirus disease 2019; R06.02 Shortness of breath; Z79.899 Other long term (current) drug therapy; M15.9 Polyosteoarthritis, unspecified; R91.1 Solitary pulmonary nodule; U07.1 COVID-19; J44.9 Chronic obstructive pulmonary disease, unspecified; G40.89 Other seizures; K57.93 Diverticulitis of intestine, part unspecified, without perforation or abscess with bleeding; Z99.81 Dependence on supplemental oxygen; G47.33 Obstructive sleep apnea (adult) (pediatric); I50.9 Heart failure, unspecified; N40.0 Benign prostatic hyperplasia without lower urinary tract symptoms; J96.11 Chronic respiratory failure with hypoxia; R26.2 Difficulty in walking, not elsewhere classified; R60.0 Localized edema; K21.9 Gastro-esophageal reflux disease without esophagitis